=== PATIENT | male | born 1965 | race Caucasian/White ===

== ENCOUNTER → 2018-09-18 | Outpatient (CLI) | payer OTHER ==
[~2018-09-18] MED LIST: ALBU90OI INH; ASPI325 PO; ATOR40TA PO; ATOR80 PO; BASAGLAR K100 UNIT/1; CHOL10002 PO; CLOP75 PO; Flonase 0.05% N16 GM; HCTZ; HYDACE5 PO; ISOMON60ER PO; LISHYD1012 PO; METF500 PO; NAPR550 PO; NEBI5 PO; NIAC250ER PO; NITR.4SL SL; Norco 5-325 Ta1 EACH PO; ONDA4ODT MM; Omeprazole20 M1 PO; POTA10T PO; POTCHL10ER PO; PSEU120ER PO; QUIN10 PO; RANO500T PO; RXNITR.4; TAMS.4ER PO; TRIA80TC TOP; Zithromax250 MG PO; [UNRECOGNIZED DRUG - OTHER] TOP
== END | disposition home or self-care (01) ==
LOC: LAB SHORT 16:45 → LAB EV 16:45
DX: L02.214 Cutaneous abscess of groin (principal); B95.8 Unspecified staphylococcus as the cause of diseases classified elsewhere
CPT/HCPCS: 87070; 87075; 87077; 87147; 87186; 87205

== ENCOUNTER 2018-11-26 09:37 | Day surgery (SDC) | payer OTHER ==
[~2018-11-26] VITALS: Ht 182.9 cm; Wt 127.7 kg
[~2018-11-26 09:37] MED LIST changes: +OMEPRAZOLE20 MG PO
--- NOTE | 2018-11-26 11:11 | NUR ---
11/26/18 Ruth Nash PT UPDATED ON DELAY OF START TIME DUE TO PREVIOUS CASE RUNNING LONGER THAN EXPECTED. PT WITH BED IN LOW, LOCKED POSITION - CALL LIGHT IN REACH.
== END 2018-11-26 11:49 | disposition home or self-care (01) ==
LOC: ORSCSDS 09:37
DX: K21.9 Gastro-esophageal reflux disease without esophagitis (principal); Z53.9 Procedure and treatment not carried out, unspecified reason; R13.10 Dysphagia, unspecified
CPT/HCPCS: 82947; J7120

== ENCOUNTER 2018-12-16 06:13 | Day surgery (SDC) | payer OTHER ==
[~2018-12-16] VITALS: Ht 180.3 cm; Wt 128.0 kg
--- NOTE | 2018-12-16 09:01 | NUR ---
PT TO RECOVERY ROOM POST PROCEDURE. AWAKE, ALERT, AND ORIENTED. DENIES ANY PAIN OR DISCOMFORT. VSS. TR BAND ON RIGHT WRIST. NO BLEEDING OR SWELLING AT RIGHT RADIAL SITE.
--- NOTE | 2018-12-16 09:48 | NUR ---
PT WATCHING TV, EATING BREAKFAST IN NO DISTRESS. VSS. CALL LIGHT IN REACH.
--- NOTE | 2018-12-16 11:01 | NUR ---
PT AMBULATING TO THE RESTROOM WITHOUT DIFFICULTY. TR BAND HAS BEEN FULLY DEFLATED. SITE IS CDI, NO BLEEDING OR SWELLING NOTED. PT DENIES ANY DISCOMFORT IN RADIAL SITE.
--- NOTE | 2018-12-16 11:30 | NUR ---
PT OUT TO CAR VIA WC. DENIES ANY PAIN OR DISCOMFORT AT TIME OF DISCHARGE. IV DC'D, CATH INTACT. PT HAS VERBALIZED UNDERSTANDING OF ALL DC INSTRUCTIONS AND FOLLOW UP INFO.
== END 2018-12-16 11:30 | disposition home or self-care (01) ==
LOC: MHTC 06:13
DX: I25.118 Atherosclerotic heart disease of native coronary artery with other forms of angina pectoris (principal); I10 Essential (primary) hypertension; I25.10 Atherosclerotic heart disease of native coronary artery without angina pectoris; E78.00 Pure hypercholesterolemia, unspecified; G47.33 Obstructive sleep apnea (adult) (pediatric); Z88.8 Allergy status to other drugs, medicaments and biological substances; Z91.040 Latex allergy status; Z79.899 Other long term (current) drug therapy; Z79.82 Long term (current) use of aspirin; Z79.4 Long term (current) use of insulin; Z79.02 Long term (current) use of antithrombotics/antiplatelets; Z87.891 Personal history of nicotine dependence
CPT/HCPCS: 93454; 93571; 93572; 99152; 99153; C1769; C1887; C1894; J1644; J2250; J3010; J7030; Q9967

== ENCOUNTER 2019-07-12 10:32 | Day surgery (SDC) | payer OTHER ==
[~2019-07-12] VITALS: Ht 180.3 cm; Wt 130.0 kg
[~2019-07-12 10:32] MED LIST changes: -BASAGLAR K100 UNIT/1; +BASAGLAR K100 UNIT/1 SC
--- NOTE | 2019-07-12 19:47 | NUR ---
SHIFT SUMMARY PATIENT ARRIVED BY [facility] FROM [facility] AT AROUND 1500, AWAKE AND ALERT IN NO APPARENT DISTRESS. PATIENT TRANSFERRED SELF TO UNIT HOSP BED, WAS PLEASANT AND CONVERSIVE DURING ALL INTERVENTIONS AND ADMISSION PROCESSES. PT'S SURGICAL SITE TO R RADIAL REMAINED C/D/I THROUGHOUT THE DEFLATION OF HIS TR BAND, AND VITAL SIGNS REMAINED CONSISTENT AT PATIENT'S BASELINE. PATIENT ADMITTED SOME PAIN POST-PROCEDURE, BUT INSISTED ITS LEVEL WAS ACCEPTABLE TO HIM AND REFUSED PAIN MEDICATION. OTHERWISE UNEVENTFUL, TRANSFERRED CARE WITH REPORT TO ONCOMING SHIFT AT 1900.
--- NOTE | 2019-07-13 06:08 | NUR ---
SHIFT SUMMARY PT RESTING IN ROOM COMFORTABLY AT THIS TIME. NO ACUTE CHANGES IN STATUS T/O NIGHT. PT SLEPT WELL IN SHORT PERIODS. REPORTS "I'M READY TO GO HOME ANY TIME NOW!" PT EDUCATED THAT INTERNATIONAL TRADE MANAGER WILL COME IN TO EVALUATE PT AND THEN DISCHARGE FROM THERE. RESP EVEN UNLABORED ON RA W/ SATS >92%. TR SITE WNL ARM BORAD IN PLACE. DENIED CP OR SOB T/O NIGHT. PT IND I ROOM TO RR. USES URINAL TO TRACK I&O'S. CALL LIGHT IN REACH.
--- NOTE | 2019-07-13 10:24 | NUR ---
DISCHARGE INSTRUCTIONS GONE OVER WITH PT. ALL QUESTIONS ANSWERED. BELONGINGS GATHERED AND SENT WITH PT. PT WAS ESCORTED OUT WITH FAMILY.
== END 2019-07-13 10:22 | disposition home or self-care (01) ==
LOC: MHTC 10:32 → PCU 13:56 → MHTC 07-13 10:22
PROC: B201YZZ Plain Radiography of Multiple Coronary Arteries using Other Contrast (ICD-10-PCS; principal; 2019-07-12)
PROC: 4A023N7 Measurement of Cardiac Sampling and Pressure, Left Heart, Percutaneous Approach (ICD-10-PCS; principal; 2019-07-12)
PROC: 02H03DZ Insertion of Intraluminal Device into Coronary Artery, One Artery, Percutaneous Approach (ICD-10-PCS; 2019-07-12)
DX: I25.118 Atherosclerotic heart disease of native coronary artery with other forms of angina pectoris (principal); Z95.1 Presence of aortocoronary bypass graft; Z79.82 Long term (current) use of aspirin; Z79.899 Other long term (current) drug therapy
CPT/HCPCS: 82947; 85347; 87081; 92978; 93454; 99152; 99153; A9270; C1725; C1753; C1769; C1874; C1887; C1894; C9600; J1644; J2250; J3010; J7030; Q9967

== ENCOUNTER 2019-09-24 13:24 | Emergency (ER) | payer MEDICARE, OTHER ==
[~2019-09-24] VITALS: Ht 182.9 cm; Wt 119.8 kg
[~2019-09-24 13:24] MED LIST changes: +Aspirin EC81 MG PO
[2019-09-24 14:06] LABS: BASOPHILS ABSOLUTE AUTO 0.06 K/mm3 (0.00-0.23); BASOPHILS PERCENT AUTO 1 % (0-2); EOSINOPHILS ABSOLUTE AUTO 0.49 K/mm3 (0.00-0.68); EOSINOPHILS PERCENT AUTO 5 % (0-6); Hematocrit 46.3 % (37.0-53.0); Hemoglobin 14.8 g/dL (13.5-17.5); IMMATURE GRAN ABSOLUTE AUTO 0.07 K/mm3 (0.00-0.10); IMMATURE GRAN PERCENT AUTO 1 % (0-1); LYMPHOCYTES ABSOLUTE AUTO 2.49 K/mm3 (0.84-5.20); LYMPHOCYTES PERCENT AUTO 24 % (21-46); MONOCYTES ABSOLUTE AUTO 0.79 K/mm3 (0.16-1.47); MONOCYTES PERCENT AUTO 8 % (4-13); Mean Corpuscular HGB 30.1 pg (26.0-34.0); Mean Corpuscular Volume 94 fL (80-100); Mean Platelet Volume 9.5 fL (9.1-12.4); NEUTROPHILS ABSOLUTE AUTO 6.45 K/mm3 (1.96-9.15); NEUTROPHILS PERCENT AUTO 62 % (41-73); Platelet Count 222 K/mm3 (150-400); RDW Coefficient Variation 12.5 % (11.7-14.2); Red Blood Cell Count 4.91 M/mm3 (4.30-5.90); White Blood Cell Count 10.35 K/mm3 (4.00-11.30)
[2019-09-24 14:31] LABS: Alanine Aminotransfer (ALT/SGP 43 U/L (12-78); Albumin, Blood 3.4 g/dL (3.4-5.0); Alk Phos 75 U/L (50-136); Anion Gap 7 mmol/L (6-16); Aspartate Aminotrans (AST/SGOT 23 U/L (12-37); Bilirubin, Total 0.6 mg/dL (0.1-1.0); Blood Urea Nitrogen 14 mg/dL (8-24); Bun/Creatinine Ratio 15.7 (12.0-20.0); CO2, Blood 21 mmol/L (21-32); Calcium, Blood 8.6 mg/dL (8.5-10.1); Chloride, Blood 107 mmol/L (98-108); Creatinine, Blood 0.89 mg/dL (0.60-1.20); Globulin, Blood 3.4 g/dL (2.2-4.0); Glomerular Filtration Rate >60 (60-); Glucose, Blood 272 mg/dL (70-99); Potassium, Blood 4.4 mmol/L (3.5-5.5); Sodium, Blood 135 mmol/L (136-145); Total Protein, Blood 6.8 g/dL (6.4-8.2); Troponin I <0.015 ng/mL (0.000-0.040)
== END 2019-09-24 16:06 | disposition home or self-care (01) ==
LOC: ER 13:24
PROVIDERS: Physician Assistant
DX: I25.119 Atherosclerotic heart disease of native coronary artery with unspecified angina pectoris (principal); E11.9 Type 2 diabetes mellitus without complications; Z88.6 Allergy status to analgesic agent; Z91.040 Latex allergy status; Z88.8 Allergy status to other drugs, medicaments and biological substances; Z91.02 Food additives allergy status; Z91.048 Other nonmedicinal substance allergy status; Z79.899 Other long term (current) drug therapy; Z79.82 Long term (current) use of aspirin; Z79.4 Long term (current) use of insulin; Z79.01 Long term (current) use of anticoagulants; Z95.5 Presence of coronary angioplasty implant and graft
CPT/HCPCS: 36415; 71046; 80053; 83880; 84484; 85025; 93005; 93010; 99285-25

== ENCOUNTER → 2022-08-29 | Outpatient (CLI) | payer OTHER ==
[~2022-08-29] MED LIST changes: +AMLO5 PO; +LORA10ER; +POTA10T
[2022-08-29 18:00] LABS: BASOPHILS ABSOLUTE AUTO 0.03 K/mm3 (0.00-0.23); BASOPHILS PERCENT AUTO 0 % (0-2); EOSINOPHILS ABSOLUTE AUTO 0.12 K/mm3 (0.00-0.68); EOSINOPHILS PERCENT AUTO 1 % (0-6); Hematocrit 52.3 % (37.0-53.0); Hemoglobin 17.9 g/dL (13.5-17.5); IMMATURE GRAN ABSOLUTE AUTO 0.06 K/mm3 (0.00-0.10); IMMATURE GRAN PERCENT AUTO 0 % (0-1); LYMPHOCYTES ABSOLUTE AUTO 2.53 K/mm3 (0.84-5.20); LYMPHOCYTES PERCENT AUTO 18 % (21-46); MONOCYTES ABSOLUTE AUTO 1.83 K/mm3 (0.16-1.47); MONOCYTES PERCENT AUTO 13 % (4-13); Mean Corpuscular HGB 30.2 pg (26.0-34.0); Mean Corpuscular HGB Conc 34.2 g/dL (31.5-36.5); Mean Corpuscular Volume 88 fL (80-100); Mean Platelet Volume 8.7 fL (9.1-12.4); NEUTROPHILS ABSOLUTE AUTO 9.43 K/mm3 (1.96-9.15); NEUTROPHILS PERCENT AUTO 67 % (41-73); Platelet Count 329 K/mm3 (150-400); RDW Coefficient Variation 12.8 % (11.7-14.2); RDW Standard Deviation 41.4 fL (35.1-46.3); Red Blood Cell Count 5.93 M/mm3 (4.30-5.90)
[2022-08-29 18:11] LABS: Albumin, Blood 4.2 g/dL (3.4-5.0); Bilirubin, Total 0.9 mg/dL (0.1-1.0); Bun/Creatinine Ratio 21.1 (12.0-20.0); Calcium, Blood 9.2 mg/dL (8.5-10.1); Creatinine, Blood 1.33 mg/dL (0.60-1.20); Globulin, Blood 4.2 g/dL (2.2-4.0); Potassium, Blood 4.2 mmol/L (3.5-5.5); Total Protein, Blood 8.4 g/dL (6.4-8.2)
== END | disposition home or self-care (01) ==
LOC: LAB SHORT 17:55
PROVIDERS: Physician Assistant
DX: R11.2 Nausea with vomiting, unspecified (principal)
CPT/HCPCS: 80053; 85025

== ENCOUNTER 2024-12-04 08:14 | Observation (INO) | payer OTHER ==
[~2024-12-04] VITALS: Ht 177.8 cm; Wt 105.2 kg
[2024-12-04 08:38] LABS: BASOPHILS ABSOLUTE AUTO 0.03 K/mm3 (0.00-0.23); BASOPHILS PERCENT AUTO 0 % (0-2); EOSINOPHILS ABSOLUTE AUTO 0.22 K/mm3 (0.00-0.68); EOSINOPHILS PERCENT AUTO 2 % (0-6); Hematocrit 39.5 % (37.0-53.0); Hemoglobin 13.4 g/dL (13.5-17.5); IMMATURE GRAN ABSOLUTE AUTO 0.05 K/mm3 (0.00-0.10); IMMATURE GRAN PERCENT AUTO 1 % (0-1); LYMPHOCYTES ABSOLUTE AUTO 2.93 K/mm3 (0.84-5.20); LYMPHOCYTES PERCENT AUTO 31 % (21-46); MONOCYTES ABSOLUTE AUTO 0.94 K/mm3 (0.16-1.47); MONOCYTES PERCENT AUTO 10 % (4-13); Mean Corpuscular HGB 29.9 pg (26.0-34.0); Mean Corpuscular HGB Conc 33.9 g/dL (31.5-36.5); Mean Corpuscular Volume 88 fL (80-100); Mean Platelet Volume 9.3 fL (9.1-12.4); NEUTROPHILS PERCENT AUTO 57 % (41-73); Platelet Count 172 K/mm3 (150-400); RDW Coefficient Variation 12.3 % (11.7-14.2); RDW Standard Deviation 39.4 fL (35.1-46.3); Red Blood Cell Count 4.48 M/mm3 (4.30-5.90); White Blood Cell Count 9.57 K/mm3 (4.00-11.30)
[2024-12-04 08:57] LABS: Albumin, Blood 3.1 g/dL (3.4-5.0); Albumin/Globulin Ratio 1.1 (0.8-1.8); Bilirubin, Total 0.5 mg/dL (0.1-1.0); Bun/Creatinine Ratio 18.7 (12.0-20.0); Calcium, Blood 8.2 mg/dL (8.5-10.1); Creatinine, Blood 1.07 mg/dL (0.60-1.20); Globulin, Blood 2.7 g/dL (2.2-4.0); Total Protein, Blood 5.8 g/dL (6.4-8.2)
[2024-12-04 14:26] VITALS: BP 130/80
[2024-12-04] MEDS ORDERED: Atropine Sulfate 0.1 MG/ML 10ML SYR IV PRN (15:00)
[2024-12-04] MEDS ORDERED: ALBU90OI INH (16:11)
[2024-12-04] MEDS ORDERED: CLOBETASOL PROP59 ML (16:13)
[2024-12-04] MEDS ORDERED: GLIP5 PO (16:15)
[2024-12-04] MEDS ORDERED: FURO20 PO (16:15)
[2024-12-04] MEDS ORDERED: Flonase 0.05% N16 GM (16:15)
[2024-12-04] MEDS ORDERED: ISOSORBIDE MONO30 MG PO (16:16)
[2024-12-04] MEDS ORDERED: SITA100T2 PO (16:16)
[2024-12-04] MEDS ORDERED: NITROLINGUAL12 GM (16:17)
[2024-12-04] MEDS ORDERED: ONDA4ODT MM (16:18)
[2024-12-04] MEDS ORDERED: POTA10T PO (16:19)
[2024-12-04] MEDS ORDERED: PANT20 PO (16:19)
[2024-12-04] MEDS ORDERED: ROSUVASTATIN CA40 MG PO (16:20)
[2024-12-04] MEDS ORDERED: INSULANPEN SC (16:23)
[2024-12-04] MEDS ORDERED: TAMS.4ER PO (16:23)
[2024-12-04] MEDS ORDERED: Insulin Human Lispro 100 Units/ML 3ML Syringe SC SCH (16:30)
--- NOTE | 2024-12-04 17:48 | NUR ---
ADMIT NOTE RECEIVED REPORT FROM FLORENTINO MALHOTRA IN ED. PT TO ROOM VIA MONIK, 1 PERSON ASSIST TO BED, UNSTEADY ON FEET. PT ORIENTED TO ROOM AND CALL LIGHT. EDUCATED PT FALL RISK AND NEED TO CALL FOR ASSISTANCE. PT DENIES PAIN, CHEST PAIN/PRESSURE, SOB, NAUSEA, DIZZINESS AND NUMB/TINGLING AT TIME OF ADMISSION. TELE SINUS RAFA/SINUS 50-60'S, BP STABLE. EDEMA NOTED TO BLE. SPO2 >90% ON RA, LS DIMINSIHED. ABD SEVER DISTENDED, FIRM, NONTENDER, HYPOACTIVE BT T/O. SKIN C/D/I. PLACED IN GOWN AND MAJOR GIFTS MANAGER SOCK. STANDING WEIGHT. OTHER VSS. CALL LIGHT WITHIN REACH.
[2024-12-04 18:10] VITALS: BP 134/88
[2024-12-04] MEDS ORDERED: Insulin Glargine-Yfgn 100 Unit/mL 3 ML SYR SC SCH (21:00)
--- NOTE | 2024-12-05 01:11 | NUR ---
WHILE PRIMARY RN ON BREAK, PT UTILIZED CALL LIGHT APPROPRIATELY TO INFORM THIS RN THAT HE WAS EXPERIENCING MORE SWELLING ON HIS LEFT HAND COMPARED TO HIS RIGHT HAND. UPON ASSESSMENT, LEFT HAND SLIGHTLY MORE SWOLLEN THAN RIGHT HAND, LUNG SOUNDS CLEAR IN UPPER LOBES AND CLEAR-DIM IN RML AND BOTH LOWER LOBES. DENIES SOB, DOES REPORT HE HAD "SOME CHEST PAIN" THAT RESOLVED "2 HOURS AGO" AND THAT THE SWELLING STARTED "1 HOUR AGO-JESSICA." VSS BESIDES ELEVATED BLOOD PRESSURE (NO BP MEDS GIVEN - REFER TO ADMITTING DIAGNOSIS). ASSEMBLER METAL FURNITURE MD NOTIFIED AND UPDATED ON SITUATION, X1 ORDER FOR IVP HYDRALAZINE (REFER TO MAR) ORDERED/OBTAINED. BUE HAVE BRISK CAP REFILL AND ARE WARM TO TOUCH EVENLY. WILL INFORM PRIMARY RN AND CONTINUE TO MONITOR PT. NO FURTHER CONCERNS AT THIS TIME. BP: 172/102 AT 0043
[2024-12-05] MEDS ORDERED: HydrALAZINE HCl 20 MG / ML 1ML Vial IV ONE (01:15)
[2024-12-05 01:21] VITALS: BP 156/116
[2024-12-05 01:27] VITALS: BP 153/91
[2024-12-05 03:56] VITALS: BP 160/70
[2024-12-05 06:58] LABS: BASOPHILS ABSOLUTE AUTO 0.03 K/mm3 (0.00-0.23); BASOPHILS PERCENT AUTO 0 % (0-2); EOSINOPHILS ABSOLUTE AUTO 0.28 K/mm3 (0.00-0.68); EOSINOPHILS PERCENT AUTO 2 % (0-6); Hematocrit 42.7 % (37.0-53.0); Hemoglobin 14.7 g/dL (13.5-17.5); IMMATURE GRAN ABSOLUTE AUTO 0.05 K/mm3 (0.00-0.10); IMMATURE GRAN PERCENT AUTO 0 % (0-1); LYMPHOCYTES PERCENT AUTO 22 % (21-46); MONOCYTES ABSOLUTE AUTO 0.94 K/mm3 (0.16-1.47); MONOCYTES PERCENT AUTO 8 % (4-13); Mean Corpuscular HGB Conc 34.4 g/dL (31.5-36.5); Mean Corpuscular Volume 87 fL (80-100); Mean Platelet Volume 9.2 fL (9.1-12.4); NEUTROPHILS ABSOLUTE AUTO 7.74 K/mm3 (1.96-9.15); NEUTROPHILS PERCENT AUTO 67 % (41-73); Platelet Count 179 K/mm3 (150-400); RDW Coefficient Variation 12.4 % (11.7-14.2); RDW Standard Deviation 39.5 fL (35.1-46.3); White Blood Cell Count 11.54 K/mm3 (4.00-11.30)
[2024-12-05 07:24] LABS: Bun/Creatinine Ratio 18.5 (12.0-20.0); Calcium, Blood 8.7 mg/dL (8.5-10.1); Creatinine, Blood 0.92 mg/dL (0.60-1.20); Potassium, Blood 3.7 mmol/L (3.5-5.5)
[2024-12-05 08:00] VITALS: BP 159/91
[2024-12-05] MEDS ORDERED: Tamsulosin HCl 0.4 MG Cap PO SCH (09:00)
[2024-12-05] MEDS ORDERED: Clopidogrel Bisulfate 75 MG Tab PO SCH (09:00)
[2024-12-05] MEDS ORDERED: Isosorbide Mononitrate 30 MG TABCR PO SCH (09:00)
[2024-12-05] MEDS ORDERED: Enoxaparin 40 MG/0.4 ML SYR SC SCH (09:00)
[2024-12-05 12:28] VITALS: BP 134/78
[2024-12-05 15:22] VITALS: BP 141/80
--- NOTE | 2024-12-05 18:33 | NUR ---
EOS/DISCHAGE: PATIENT REMAINS ALERT AND ORIENTED X 4 1 EPISODE OF DIZZINESS THIS AM, HOWEVER, THIS EVENING AROUND 1750 WAS WALKED >200 FEET AND SIT TO STANDING EXERCISES PREFORMED WITH NO SYNCOPE, DIZZINESS OR LIGHTHEADEDNESS. PATIENT WANTS TO BE DISCHARGED. PLAN FOR STOPPING NEBIVOLOL. FOLOW UP WITH PCP AND CARDIOLOGY. PATIENT UNDERSTAND DISCHARGE INSTRUCTIONS AND PLAN AND KNOWS SIGNS AND SYMPTOMS TO RETURN TO ED IF NECESSARY. NO ACUTE CONCERNS FROM PATIENT OR THIS RN AT TIME OF DISHCARGE. IV REMOVED AND TELE REMOVED BY PCT.
== END 2024-12-05 18:41 | disposition home or self-care (01) ==
LOC: ER 08:14 → PCU 08:15
PROVIDERS: Student in an Organized Health Care Education/Training Program; ADMIT Internal Medicine
DX: R00.1 Bradycardia, unspecified (principal); I10 Essential (primary) hypertension; I25.119 Atherosclerotic heart disease of native coronary artery with unspecified angina pectoris; E78.5 Hyperlipidemia, unspecified; E11.9 Type 2 diabetes mellitus without complications; J44.9 Chronic obstructive pulmonary disease, unspecified; N40.0 Benign prostatic hyperplasia without lower urinary tract symptoms; I25.10 Atherosclerotic heart disease of native coronary artery without angina pectoris; F41.8 Other specified anxiety disorders; K21.9 Gastro-esophageal reflux disease without esophagitis; G47.33 Obstructive sleep apnea (adult) (pediatric); Z95.5 Presence of coronary angioplasty implant and graft; Z88.6 Allergy status to analgesic agent; Z88.5 Allergy status to narcotic agent; Z88.8 Allergy status to other drugs, medicaments and biological substances; Z79.4 Long term (current) use of insulin; Z79.899 Other long term (current) drug therapy
CPT/HCPCS: 36415; 71046; 80048; 80053; 80320; 82947; 83735; 83880; 84484; 85025; 93005; 93010; 93306; 96372; 96374; 99285-25; A9270; G0378; J0360; J1650; J1815